=== PATIENT | female | born 1990 | race Caucasian/White ===

== ENCOUNTER → 2020-12-15 | Day surgery (SDC) | payer OTHER ==
[~2020-12-15] MED LIST: GEODON20 MG PO; PERCOCET 5-3251 EACH PO; PROPRANOLOL HCL10 MG PO
[2020-12-15 07:18] LABS: HCG (URINE) SCREEN NEGATIVE (NEGATIVE)
[2020-12-15 07:46] LABS: BASOPHIL 0.4 % (0-2); EOSINOPHIL 0.9 % (0-5); HCT 36.2 % (37.0-47.0); LYMPHOCYTE 29.5 % (15-48); MCH 31.2 pg (25.0-31.0); MCHC 33.1 g/dL (32.0-36.0); MONOCYTE 7.9 % (0-12); MPV 11.7 fL (6.0-9.5); NEUTROPHIL 60.9 % (41-80); NRBC 0; PLT 180 K/uL (150-400); RBC 3.85 M/uL (4.20-5.40); RDW 13.2 % (11.5-14.0); WBC 11.6 K/uL (4.0-10.5)
== END | disposition home or self-care (01) ==
LOC: FAS 06:52
PROVIDERS: Oral & Maxillofacial Surgery
DX: K02.63 Dental caries on smooth surface penetrating into pulp (principal); F17.210 Nicotine dependence, cigarettes, uncomplicated; Z86.59 Personal history of other mental and behavioral disorders; Z20.822 Contact with and (suspected) exposure to COVID-19
CPT/HCPCS: 36415; 84703; 85025; J1100; J1170; J1885; J2250; J2405; J2704; J2710; J3010; J7120